=== PATIENT | female | born 1950 | race Asian ===

== ENCOUNTER 2022-07-22 09:05 | Outpatient (REF) | payer MEDICARE, OTHER, SELFPAY ==
--- NOTE | ~2022-07-22 | XR_ITS ---
EXAMINATION: BILATERAL FOOT X-RAY CLINICAL INFORMATION: Pain COMPARISON: None TECHNIQUE: 3 views of each foot FINDINGS: Left: Bone alignment is normal. No fracture or dislocation. Joint spaces are normal. Small calcaneal spurs. Small radio opaque density in the plantar soft tissues of the heel questionable for foreign body measuring 2 mm. Soft tissues are otherwise normal. Right: Bone alignment is normal. No fracture or dislocation. Joint spaces are normal. Small calcaneal spurs. Soft tissues are otherwise normal. XR/XR foot RT min 3V IMPRESSION: Small calcaneal spurs. Question small soft tissue foreign body in the left heel.
--- NOTE | ~2022-07-22 | XR_ITS ---
EXAMINATION: BILATERAL FOOT X-RAY CLINICAL INFORMATION: Pain COMPARISON: None TECHNIQUE: 3 views of each foot FINDINGS: Left: Bone alignment is normal. No fracture or dislocation. Joint spaces are normal. Small calcaneal spurs. Small radio opaque density in the plantar soft tissues of the heel questionable for foreign body measuring 2 mm. Soft tissues are otherwise normal. Right: Bone alignment is normal. No fracture or dislocation. Joint spaces are normal. Small calcaneal spurs. Soft tissues are otherwise normal. XR/XR foot LT min 3V IMPRESSION: Small calcaneal spurs. Question small soft tissue foreign body in the left heel.
[2022-07-22 09:37] LABS: MANUAL DIFF FLAG NO
[2022-07-22 09:51] LABS: Basophils Percent Auto 0.7 % (0-2); Eosinophils Absolute Auto 0.1 X10*3/uL (0.0-0.4); Eosinophils Percent Auto 1.5 % (0-4); Hematocrit 38.8 % (37.0-47.0); Hemoglobin 13.3 g/dl (12.0-16.0); Imm Gran Abs Auto 0.01 X10*3/uL (0.00-0.03); Imm Gran Pct Auto 0.2 % (0.0-0.4); Lymphocytes Percent Auto 49.6 % (20-40); Mean Corpuscular HGB Conc 34.3 g/dl (31.0-35.0); Mean Corpuscular Hemoglobin 29.3 pg (27.0-33.0); Mean Corpuscular Volume 85.5 fL (80.0-98.0); Mean Platelet Volume 11.2 fL (9.4-12.3); Monocytes Absolute Auto 0.3 X10*3/uL (0.1-1.2); Monocytes Percent Auto 5.6 % (2-11); Neutrophils Absolute Auto 2.6 x10*3/uL (2.0-8.3); Neutrophils Percent Auto 42.4 % (45-73); Platelet Count 237 X10*3/uL (160-400); Red Blood Count 4.54 X10*6/uL (4.20-5.50); Red Cell Distribution Width 12.7 % (11.0-16.0); White Blood Count 6.1 X10*3/uL (4.8-10.8)
[2022-07-22 10:48] LABS: Alanine Aminotransferase 21 U/L (0-31); Albumin Level 4.2 g/dL (3.5-5.0); Alkaline Phosphatase 58 U/L (39-117); Anion Gap 15 (12-20); Aspartate Amino Transferase 21 U/L (5-31); Bilirubin Total 0.8 mg/dL (0.0-1.0); Blood Urea Nitrogen 9 mg/dL (9-16); C Reactive Protein 0.08 mg/dL (< or = 0.50); Calcium 9.6 mg/dL (8.4-10.2); Carbon Dioxide 23 mmol/L (22-29); Chloride 104 mmol/L (96-108); Estimated Glomerular Filt Rate 60; Glucose Random 171 mg/dL (60-115); Potassium 4.1 mmol/L (3.3-5.1); Sodium 138 mmol/L (135-145); Total Protein 7.5 g/dL (6.5-8.0)
[2022-07-22 11:03] LABS: Erythrocyte Sedimentation Rate 25 MM/HR (0-20)
[2022-07-22 12:30] LABS: Creatinine Urine 13.34 mg/dL; Total Protein Urine Random < 7 mg/dL (<12)
[2022-07-24 14:25] LABS: Complement C3 138 mg/dL (83-193)
[2022-07-24 14:36] LABS: Anti-Centromere B Antibodies <1.0 NEG AI (<1.0 NEG)
[2022-07-25 13:08] LABS: Anti DNA DS Antibody <1 IU/mL; Myeloperoxidase Antibody <1.0 AI; Proteinase 3 PR3 Antibodies <1.0 AI; SM/Ribonucleoprotein Ab <1.0 NEG AI (<1.0 NEG); Scleroderma 70 Antibody <1.0 NEG AI (<1.0 NEG); Smith Protein <1.0 NEG AI (<1.0 NEG)
[2022-08-03 17:25] LABS: Cryoglobulin, Qual NONE DETECTED ((NDT))
== END 2022-07-22 09:06 | disposition home or self-care (01) ==
LOC: HO.LAB 09:05
PROVIDERS: PCP Internal Medicine; Visit Provider Internal Medicine Rheumatology
DX: R76.8 Other specified abnormal immunological findings in serum (principal); M79.671 Pain in right foot; M79.672 Pain in left foot; I73.00 Raynaud's syndrome without gangrene
CPT/HCPCS: 36415; 73630; 80053; 82595; 83520; 84156; 85025; 85652; 86021; 86038; 86140; 86160; 86225; 86235

== ENCOUNTER → 2022-09-04 13:27 | Outpatient (BNVA) | payer MEDICARE, OTHER, SELFPAY | PROVIDERS: PCP Internal Medicine; Visit Provider Internal Medicine Rheumatology | DX: R76.8 Other specified abnormal immunological findings in serum (principal); I73.00 Raynaud's syndrome without gangrene | CPT/HCPCS: 99212 ==